=== PATIENT | male | born 1995 | race Caucasian/White ===

== ENCOUNTER 2022-05-02 02:52 | Emergency (ER) | payer OTHER, SELFPAY ==
[2022-05-02 03:08] VITALS: BP 137/84; PULSE 112; RESP 22; TEMP 37.2; O2SAT 98
[2022-05-02 05:38] VITALS: BP 124/74; PULSE 74; RESP 16; TEMP 36.6; O2SAT 96
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
--- OUTSIDE RECORDS SUMMARY | 2022-05-02 05:57 | XMS_ITS | Continuity of Care Document ---
:1995 Author Organization [facility] Address [address] [place] [address]- Care Team Providers Name Role Phone Mercedes DOMINGUEZ, Mi Sal Primary Care Physician Encounter [facility] Date(s): 11/29/19 - 11/29/[address] [address]- [facility] Discharge Disposition: A-D/C Home Attending Physician: Ashely Patel MD Admitting Physician: Ashely Patel MD Referring Physician: Not on Staff, Referring MD Allergies, Adverse Reactions, Alerts No Known Medication Allergies Medications acetaminophen-oxyCODONE 325 mg-5 mg oral tablet 1, tablet, By Mouth, Every 6 hours, PRN, for 3 days, # 12 tablet, Refills 0, Tot. Refills 0, Acute, for pain, 12/02/19 18:31:00 EDT, 11/29/19 18:31:00 EDT, Route to Pharmacy Electronically, [id number] Tablet, Partial fill upon patient request,... Start Date: 11/29/19 Stop Date: 12/02/19 Status: Orderedpenicillin V potassium 500 mg oral tablet 1 tablet = 500 mg, By Mouth, 4 times a day, for 7 days, # 28 tablet, 0 Refills, Acute 12/06/19 18:30:00 EDT, 11/29/19 18:30:00 EDT, [id number], 178, cm, 11/29/19 17:55:00 EDT, Height, 64.8, kg,11/29/19 17:55:00 EDT, Dry Weight Start Date: 11/29/19 Stop Date: 12/06/19 Status: Ordered Vital Signs Most recent to oldest [Reference Range]: 1 Height 178 cm (11/29/19 5:55 PM) Weight 64.8 kg (11/29/19 5:55 PM) Oxygen Saturation [94-100 %] 98 % (11/29/19 5:55 PM) Pulse Rate [55-90 bpm] 116 bpm *H* (11/29/19 5:55 PM) Blood Pressure [90-138/55-84 mm Hg] 113/66 mm Hg (11/29/19 5:55 PM) Respiratory Rate [16-30 br/min] 16 br/min (11/29/19 5:55 PM) Temperature [96.8-100.4 DegF] 98.9 DegF (11/29/19 5:55 PM) Mode of Delivery (Oxygen) Room air (11/29/19 5:55 PM) Blood pressure sites Arm, left (11/29/19 5:55 PM) Temperature Route Temporal (11/29/19 5:55 PM) Dry Weight 64.8 kg (11/29/19 5:55 PM) Dry Weight Obtained Via Standing scale (11/29/19 5:55 PM) Social History Social History Type Response Smoking Status Never smoker entered on: 07/06/15 Sex
--- OUTSIDE RECORDS SUMMARY | 2022-05-02 05:57 | XMS_ITS | Continuity of Care Document ---
:1995 Author Organization [facility] Address [address] [place] [address] Drive [address] [place] [address]- Care Team Providers Name Role Phone Mercedes DOMINGUEZ, Mi Sal Primary Care Physician [place] [facility] [place]20 [place] 02/12/20 [facility] [address] [place] [address] Drive [address] [place] [address]- [facility] Allergies, Adverse Reactions, Alerts No Known Medication Allergies Social History Social History Type Response Smoking Status Never smoker entered on: 07/06/15 Sex
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
== END 2022-05-02 09:07 | disposition home or self-care (01) ==
PROVIDERS: Emergency Provider Emergency Medicine; PCP Internal Medicine
DX: T23.221A Burn of second degree of single right finger (nail) except thumb, initial encounter (principal); T31.0 Burns involving less than 10% of body surface; X10.2XXA Contact with fats and cooking oils, initial encounter; Y93.9 Activity, unspecified; Y92.9 Unspecified place or not applicable; Y99.0 Civilian activity done for income or pay
CPT/HCPCS: 16025; 99283; 99284